=== PATIENT | female | born 1960 | race African-American/Black ===

== ENCOUNTER 2018-10-19 08:48 | Emergency (ER) | payer MEDICAID ==
[~2018-10-19] VITALS: Ht 167.6 cm; Wt 87.0 kg
[2018-10-19] MEDS ORDERED: KETOROLAC 30MG/ML VIAL IV STA (10:03)
[2018-10-19] MEDS ORDERED: METOCLOPRAMIDE HCL 10MG/2ML VIAL IV ONE (10:15)
[2018-10-19 11:06] VITALS: BP 146/76
== END 2018-10-19 11:20 | disposition home or self-care (01) ==
LOC: ER 08:48
DX: R51 Headache (principal); Z98.890 Other specified postprocedural states
CPT/HCPCS: 96374; 96375; 99283; J1885; J2765